=== PATIENT | female | born 1940 | race Caucasian/White ===

== ENCOUNTER 2016-12-12 09:45 | Outpatient (RCR) | payer MEDICARE, OTHER | END 2017-01-12 11:02 | disposition home or self-care (01) | LOC: PT 09:45 | PROVIDERS: ATTEND Physician Assistant Medical | DX: M51.16 Intervertebral disc disorders with radiculopathy, lumbar region (principal) | CPT/HCPCS: 97001; 97110; 97140; G8978; G8979; G8980 ==

== ENCOUNTER 2017-03-12 10:15 | Outpatient (RCR) | payer MEDICARE, OTHER ==
--- NOTE | 2017-02-27 10:56 | PT/OT/ST INITIAL EVALUATION ---
Department of Health and Human Services Form Approved [facility] Care Financing Administration OMB No. [id number] PLAN OF CARE/ASSESSMENT FOR OUTPATIENT REHABILITATION (Complete for Initial Claims Only) 1. PATIENT'S NAME Jael Lynch 2. ACC # [id number] 3. PSYCHIATRICN [id number] 4. PROVIDER NO. [id number] 5. TYPE: PT 6. PRIOR HOSPITALIZATION None 7. PRIMARY DX Left sciatica 8. SECONDARY DX Left posterior knee and calf pain 9. ONSET DATE Unknown 10. REFERRAL DATE 02/20/2017 11. SOC. DATE 02/25/2017 12. TIME OF EVAL 13:[address] Jorge Rick 13. CHARGES/UNITS Evaluation, ultrasound and [place] 14. G CODES NA 15. PRIOR LEVEL OF FUNCTION; PERTINENT HISTORY (Prior therapy results, reason for referral.) S: Reason for referral: The patient was referred to physical therapy by Dr. Rick with the diagnosis of left sciatica. The patient reports that she has experiencing leg pain. Description/mechanism of injury: She is not sure what happened. She states that she has had it for a long time and nothing has seemed to help much. The patient notes that the symptoms worse, usually being on her feet for long periods. The patient does not have any pain when sitting. The patient describes the pain as being at the back of her knee, down the center the center of her calf to her ankle. 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 The patient did report falling off the bathroom stool a couple of months ago. Pain level: Currently rates her pain to be 5/10. Diagnostic tests: MRI had been performed of her lumbar spine. Past medical history: She does not report any other significant past medical history. Current medications: None Personal health rating: She rates her overall health as fair. Patient's Goal: The patient's goal for therapy is to not have pain. 16. INITIAL ASSESSMENT/SAFETY PRECAUTIONS/MEDICAL COMPLICATIONS (Level of function at start of care. Be specific, use objective measures, list problems.) O: APPEARANCE, OBSERVATION AND GAIT: The patient is a 76-year-old female. She demonstrates anterior pelvic tilt with decreased lumbar lordosis. Right hip is higher. She does demonstrate a scoliotic curve with a right lumbar convexity and left thoracic convexity. The patient appears very uncomfortable and fidgety when sitting chair, moving and changing positions frequently. PALPATION: The patient has tenderness to palpation at left posterior knee, popliteal region and along center and medial calf on the left. The patient did demonstrate mild swelling at left lower leg and into the ankle. RANGE OF MOTION/FLEXIBILITY: Trunk range of motion 50%, flexion and extension 30%, sidebending normal limits bilaterally. Hamstring flexibility on the right 60 degrees, left 40 degrees. Piriformis flexibility on the right normal limits. Left was minimally limited. The patient did demonstrate some weakness in her hip abductors, as well as knee flexion and extension on the left due to pain. The patient also demonstrates weakness through her abdominals when changing positions. TODAY'S TREATMENT: Treatment included initial evaluation followed by ultrasound to the patient's left posterior knee and calf. The patient was then instructed on home exercise program for gentle flexibility and trunk stabilization exercises. 17. INITIAL POC: (Specify procedures, modalities, short and mcc goals) A: The patient presents to physical therapy with chronic low back pain with left radicular symptoms; however, I question whether it is sciatic type symptoms versus Wren's cyst at left knee. PROGNOSIS: The patient may benefit from physical therapy to help decrease pain and swelling at left lower extremity. SHORT TERM GOALS: 1. The patient to be compliant with home exercise program in 2 weeks. 2. The patient to report 50% decrease in pain at left calf in 4 weeks. 3. The patient to demonstrate improved lower extremity strength when changing positions in 4 weeks. 4. The patient to report that she is able to stand for longer periods without having leg pain in 6 weeks. P: The patient will be seen 2 times a week for 4 weeks. Modalities and manual therapy will be used as necessary to decrease pain and inflammation. 18. FREQUENCY 2 times per week 19. DURATION 4 weeks 20. FUNCTIONAL LEVEL (End of claim period) 21. PHYSICIAN SIGNATURE ? ON FILE OR ENTER HERE: 22. DATE: I certify the need for these services furnished under this plan of care and if for partial hospitalization. 23. CERTIFICATION FROM THROUGH FORM [id number]
[~2017-03-12 10:15] MED LIST: ACET325T38 PO; AMLO10TA82 PO; ASP81CT PO; CA C1TAB26 PO; CALC600T12; CARB200T5 PO; CRAN475C; CYAN50TA PO; CYCL-265 PO; HYDR-3881 PO; INDA1.25 PO; MGX400T PO; MIRALAX 17 GM P17 GM PO; NF-URO10 PO; OLME40TA3 PO; OMEP20CA6 PO; OMG1KC; PRM25T PO; ROSU5TAB PO; SPIRONOLACTONE; SPRN25T PO; UBID100C8 PO; VIT500TA; [UNRECOGNIZED DRUG - OTHER]
== END 2017-03-23 10:48 | disposition home or self-care (01) ==
LOC: PT 10:15
PROVIDERS: ATTEND Family Medicine
DX: M54.32 Sciatica, left side (principal); M25.562 Pain in left knee; M79.662 Pain in left lower leg
CPT/HCPCS: 97035; 97110; 97161; G8981; G8982